=== PATIENT | female | born 1965 | race African-American/Black ===

== ENCOUNTER → 2020-04-23 | Outpatient (CLI) | payer BC | LOC: LAB 09:47 | PROVIDERS: ATTEND Anesthesiology | DX: Z01.812 Encounter for preprocedural laboratory examination (principal); Z11.59 Encounter for screening for other viral diseases ==

== ENCOUNTER → 2020-09-10 | Outpatient (CLI) | payer BC, OTHER | LOC: LAB 08:15 | PROVIDERS: ATTEND Anesthesiology | DX: Z01.812 Encounter for preprocedural laboratory examination (principal); Z20.828 Contact with and (suspected) exposure to other viral communicable diseases ==